=== PATIENT | female | born 1965 | race African-American/Black ===

== ENCOUNTER 2017-05-25 20:29 | Emergency (ER) | payer SELFPAY ==
[~2017-05-25] VITALS: Ht 162.6 cm; Wt 93.0 kg
[2017-05-25 20:29] VITALS: BP 93/60
[~2017-05-25 20:29] MED LIST: NKM
--- NOTE | 2017-05-25 20:36 | Emergency Room Report ---
History of Present Illness General Chief Complaint: Multiple Trauma/Fall Source: Patient, EMS Present Illness HPI 51-year-old female presenting with fall. Patient states that she slipped on a straw, twisted her right ankle. There head but denies any LOC. Not on any blood thinners. No nausea vomiting. Was ambulatory when EMS arrived Allergies: Coded Allergies: No Known Allergies (Unverified , 05/25/17) Patient History Past Medical History: see triage record Past Surgical History: none Pertinent Family History: none Now: No Reviewed Nursing Documentation: PMH: Agreed; PSxH: Agreed Nursing Documentation-PMH Past Medical History: No History, Except For Hx Neurological Problems: Yes - "Neck and back injuries" Review of Systems All Other Systems: negative except mentioned in HPI Physical Exam Vital Signs Date Time Temp Pulse Resp B/P (MAP) Pulse Ox O2 Delivery O2 Flow Rate FiO2 05/25/17 20:24 97.8 66 16 105/73 98 Room Air 97.9 Sp02 EP Interpretation: reviewed, normal General Appearance: normal inspection, well appearing, no apparent distress, alert, GCS 15, non-toxic Head: normocephalic, atraumatic Eyes: bilateral eye normal inspection, bilateral eye PERRL, bilateral eye EOMI ENT: normal ENT inspection, normal pharynx, normal voice, moist mucus membranes Neck: normal inspection, full range of motion, supple Respiratory: normal inspection, lungs clear, normal breath sounds, no respiratory distress, no retraction, no wheezing, speaking full sentences, chest symmetrical Cardiovascular #1: normal inspection, regular rate, rhythm, no edema, normal capillary refill Cardiovascular #2: 2+ radial (R), 2+ radial (L) Gastrointestinal: normal inspection, non tender, soft, non-distended, no guarding Musculoskeletal: other - Right ankle medial malleolus tenderness, no ecchymosis , minimal swelling, mostly full range of motion of right ankle Neurologic: normal inspection, alert, oriented x3, responsive, motor strength/ tone normal, sensory intact, normal gait, speech normal Psychiatric: normal inspection, judgement/insight normal, memory normal Skin: normal inspection, normal color, no rash, warm/dry, well hydrated, normal turgor Medical Decision Making Diagnostic Impression: Primary Impression: Fall Additional Impression: Ankle contusion ER Course 51-year-old female with ankle pain DDX: Sprain/strain vs. fracture Plan: Pain control XR ER course: MARI bandage applied. Disposition: Patient is to be discharged home Tylenol and Robaxin Patient educated to rest, ice, and elevate extremity and to avoid vigorous activity. Strict precautions discussed with patient on when to return to the emergency room including increased redness or swelling joints, increased pain/swelling of extremity, fever or chills, which could indicate severe illness. Patient is to follow up with their primary care doctor within 5 days. Patient also instructed to follow up with an orthopedic doctor if continuing to have mild/moderate pain as he may need further outpatient imaging. Patient agrees with plan. Please note that this Emergency Department Report was dictated using [employer] lead technology software, occasionally this can lead to erroneous entry secondary to interpretation by the dictation equipment. Xray ordered: Right ankle 3 view Indication: Pain EP Interpretation: Yes Interpretation: No dislocation, no soft tissue swelling, no fractures Impression: No acute disease Electronically signed by Zafar Turner MD Last Vital Signs Date Time Temp Pulse Resp B/P (MAP) Pulse Ox O2 Delivery O2 Flow Rate FiO2 05/25/17 20:24 97.8 66 16 105/73 98 Room Air 97.9 Disposition: HOME, SELF-CARE Condition: Improved Scripts Methocarbamol* (ROBAXIN-750*) 750 Mg Tablet 750 MG PO QID, #28 TAB 0 Refills Prov: Zafar Turner M.D. 05/25/17 Acetaminophen* (TYLENOL EXTRA STRENGTH*) 500 Mg Tablet 500 MG ORAL Q8H PRN for Prn Headache/Temp > 101, #30 TAB 0 Refills Prov: Zafar Turner M.D. 05/25/17 Zafar Turner M.D. May 25, 2017 20:36
[2017-05-25] MEDS ORDERED: ROBAXIN-750750 MG PO (20:45)
[2017-05-25] MEDS ORDERED: TYLENOL EXTRA500 MG ORAL (20:45)
[2017-05-25] MEDS ORDERED: Acetaminophen 500mg (ES) tab ORAL ONE (20:45)
[2017-05-25 21:17] VITALS: BP 101/64
--- NOTE | 2017-05-26 09:52 | Diagnostic Imaging Report ---
Indication: Pain right ankle ankle pain/trauma Comparison: None Findings: 3 views of the right ankle obtained. No acute fracture, malalignment, periostitis, or osteochondral defects are identified. Soft tissues are unremarkable. Impression: Negative examination
== END 2017-05-25 21:19 | disposition home or self-care (01) ==
LOC: EDBD 20:29 → EMR 21:00
DX: S90.01XA Contusion of right ankle, initial encounter (principal); W01.0XXA Fall on same level from slipping, tripping and stumbling without subsequent striking against object, initial encounter; Y93.9 Activity, unspecified; Y92.9 Unspecified place or not applicable
CPT/HCPCS: 99284